=== PATIENT | male | born 1995 | race Caucasian/White ===

== ENCOUNTER 2019-03-28 14:08 | Emergency (ER) | payer OTHER ==
[~2019-03-28] VITALS: Ht 190.5 cm; Wt 101.6 kg
[2019-03-28 14:31] LABS: ABSOLUTE BASOPHILS 0.1 thou/uL (0.0-0.2); ABSOLUTE EOSINOPHILS 0.1 thou/uL (0.0-0.7); ABSOLUTE LYMPHOCYTES 2.2 thou/uL (0.8-5.3); ABSOLUTE MONOCYTES 0.4 thou/uL (0.0-1.2); ABSOLUTE NEUTROPHILS 5.5 thou/uL (1.6-8.1); EOSINOPHILS 0.8 %; HEMATOCRIT 41.3 % (42.0-52.0); HEMOGLOBIN 13.7 gm/dL (14.0-18.0); LYMPHOCYTES 26.5 %; MCH 26.8 pg (26.0-34.0); MCHC 33.1 g/dL (28.0-37.0); MCV 80.8 fL (80.0-100.0); MONOCYTES 5.2 %; MPV 8.9 fl. (7.2-11.1); NUCLEATED RBCS 0 /100WBC; PLATELET COUNT* 386 thou/uL (150-400); POLYS 66.5 %; RBC 5.11 mil/uL (4.50-6.00); RDW-CV 16.2 % (10.5-14.5); WBC 8.3 thou/uL (4.0-11.0)
[2019-03-28 14:41] LABS: CREATININE 1.1 mg/dL (0.6-1.3); POTASSIUM 3.2 mmol/L (3.5-5.1)
[2019-03-28 14:46] LABS: ALBUMIN 3.2 g/dL (3.4-5.0); TOTAL BILIRUBIN 0.3 mg/dL (<0.1-1.0); TOTAL PROTEIN 7.9 g/dL (6.4-8.2)
[2019-03-28 16:22] LABS: URINE BILIRUBIN NEGATIVE (Negative); URINE BLOOD NEGATIVE (Negative); URINE CLARITY CLOUDY; URINE COLOR YELLOW; URINE GLUCOSE-RANDOM NEGATIVE (Negative); URINE KETONES NEGATIVE (Negative); URINE LEUKOCYTES-REFLEX NEGATIVE (Negative); URINE NITRITE-REFLEX NEGATIVE (Negative); URINE PROTEIN TRACE (Negative); URINE UROBILINOGEN 0.2 E.U./dl (0.2-1.0)
[2019-03-28 16:23] VITALS: BP 102/61
[2019-03-28 16:31] LABS: AMP/METHAMP Negative (Negative); BARBITURATES Negative (Negative); BENZODIAZEPINES POSITIVE (Negative); COCAINE Negative (Negative); METHADONE Negative (Negative); OPIATES Negative (Negative); PCP Negative (Negative); THC Negative (Negative)
[2019-03-28 16:36] LABS: AMORPHOUS PHOSPHATES Many /LPF (None Seen); BACTERIA-REFLEX None Seen /HPF (None Seen); CASTS None Seen /LPF (None Seen); MUCUS None Seen strn/LPF (None Seen); SQUAMOUS NONE SEEN /LPF (0-3); URINE RBC None Seen /HPF (0-2)
[2019-03-28 16:37] LABS: URINE WBC-REFLEX 0-5 Rare /HPF (0-5)
--- NOTE | 2019-03-29 09:25 | EKG ---
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
--- NOTE | 2019-03-29 09:25 | EKG ---
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
== END 2019-03-28 16:25 ==
LOC: EDBD 14:08 → M.ERS 14:08
PROVIDERS: Personal Emergency Response Attendant
DX: R56.9 Unspecified convulsions (principal); Z88.6 Allergy status to analgesic agent